=== PATIENT | male | born 1975 | race Caucasian/White ===

== ENCOUNTER 2017-06-27 14:56 | Emergency (ER) | payer OTHER ==
--- NOTE | 2017-06-27 15:23 | PDOC ---
Rapid Medical Evaluation Time Seen by Provider: 06/27/17 15:18 Medical Evaluation: 06/27/17 15:18 I have performed a brief in-person evaluation of this patient. The patient presents with a chief complaint of: abscess/ swelling and drainage to right AC.. used small needle to arm 3 days ago.. now arm red/ swollen with purulent drainage. Pertinent physical exam findings: Hot, red, swollen right arm- with open wound draining purulent drainage. I have ordered the following: wound culture , CBC, CMP, Blood Culture x 1 . The patient will proceed to the ED for further evaluation. 06/27/17 15:19 06/27/17 15:25
[2017-06-27 15:24] VITALS: BP 147/95; PULSE 86; TEMP 98.3; BMI 27.1
--- NOTE | 2017-06-27 18:30 | PDOC ---
History of Present Illness - General Chief Complaint: Abscess Boil Stated Complaint: BOIL Time Seen by Provider: 06/27/17 15:18 History Source: Patient Exam Limitations: No Limitations - History of Present Illness Initial Comments: 06/27/17 18:30 41M with no past medical history presents to the ED for purulent abcess on the right forearm for the past 5 days. Patient denies any starting injury. Pain and redness stated as a point that increased in sized every days. Patient admits to pricking the site with a needle to drain it. The site appears purulent. PAtient denies iv drug use and denies having taken any medication for it. Past History - Past Medical History Allergies/Adverse Reactions: Allergies Allergy/AdvReac Type Severity Reaction Status Date / Time No Known Allergies Allergy Verified 06/27/17 15:22 Home Medications: Ambulatory Orders Sulfamethoxazole/Trimethoprim [Bactrim Ds -] 1 tab PO BID #14 tablet 06/27/17 COPD: No Other medical history: denies - Suicide/Smoking/Psychosocial Hx Smoking History: Current every day smoker Number of Cigarettes Smoked Daily: 20 Information on smoking cessation initiated: No Review of Systems - Review of Systems Able to Perform ROS?: Yes Constitutional: No: Symptoms Reported HEENTM: No: Symptoms Reported Respiratory: No: Symptoms reported Cardiac (ROS): No: Symptoms Reported ABD/GI: No: Symptoms Reported : No: Symptoms Reported Musculoskeletal: No: Symptoms Reported Integumentary: Yes: See HPI All Other Systems: Reviewed and Negative *Physical Exam - Vital Signs Last Vital Signs Temp Pulse Resp BP Pulse Ox 98.3 F 86 18 147/95 99 06/27/17 15:22 06/27/17 15:22 06/27/17 15:22 06/27/17 15:22 06/27/17 15:22 - Physical Exam General Appearance: Yes: Nourished, Appropriately Dressed. No: Apparent Distress HEENT: positive: EOMI, NKEHCI Respiratory/Chest: positive: Lungs Clear, Normal Breath Sounds. negative: Chest Tender, Respiratory Distress Cardiovascular: positive: Regular Rhythm, Regular Rate, S1, S2 Gastrointestinal/Abdominal: positive: Normal Bowel Sounds Extremity: positive: Normal Capillary Refill, Normal Inspection, Normal Range of Motion Integumentary: positive: Normal Color, Dry, Warm, Other (5xcm are of induration with central purulence) Neurologic: positive: Fully Oriented, Alert, Normal Mood/Affect Procedures - Incision and Drainage I&D Site: Right: Arm Betadine cleansed: Yes Anesthesia: 1% Lidocaine Blade Size: 11 Iodinated Packin/2 in ED Treatment Course - LABORATORY CBC & Chemistry Diagram: 06/27/17 19:42 06/27/17 19:20 Medical Decision Making - Medical Decision Making 06/27/17 21:38 Patient given IV vancomycin prescription for Bactrim Come back tomorrow to remove packing Ultrasound shows no vessel involvement *DC/Admit/Observation/Transfer Diagnosis at time of Disposition: Abscess of arm, right - Discharge Dispostion Disposition: HOME Condition at time of disposition: Fair Admit: No - Prescriptions Prescriptions: Sulfamethoxazole/Trimethoprim [Bactrim Ds -] 1 tab PO BID #14 tablet - Referrals - Patient Instructions Printed Discharge Instructions: DI for Incision and Drainage of a Skin Abscess Additional Instructions: Come back in 24H to this Emergency department to get packing removed. Avoid getting packing wet in the meantime. Come back to the ER in the meantime for any new, concerning or worsening symptom. - Post Discharge Activity
[2017-06-27] MEDS ORDERED: VANCOMYCIN 1 GRAM (PRE-DOCKED) 1,000 MG/250 ML BAG IVPB ONE (18:42)
[2017-06-27] MEDS ORDERED: VANCOMYCIN 1,500 MG in DEXTROSE 5%-WATER - 500 ML IVPB ONE (19:05)
[2017-06-27 19:51] LABS: BASO % 0.8 % (0-2.0); EOS % 4.4 % (0-4.5); HEMATOCRIT 43.6 % (35.4-49); HEMOGLOBIN 14.5 GM/dL (11.7-16.9); LYMPH % 30.3 % (8-40); MCH 27.8 pg (25.7-33.7); MCHC 33.3 g/dl (32.0-35.9); MEAN CELL VOLUME 83.6 fl (80-96); MEAN PLT VOLUME 7.4 fl (7.5-11.1); MONO % 7.3 % (3.8-10.2); NEUT % 57.2 % (42.8-82.8); PLATELET COUNT 194 K/MM3 (134-434); RBC 5.21 M/mm3 (4.00-5.60); RDW 14.8 % (11.9-15.9); WHITE BLOOD COUNT 9.8 K/mm3 (4.0-10.0)
[2017-06-27] MEDS ORDERED: VANCOMYCIN 1,500 MG in SODIUM CHLORIDE 500 ML IVPB ONE (20:00)
[2017-06-27 20:51] LABS: ALBUMIN 3.9 g/dl (3.4-5.0); ALK PHOS 59 U/L (45-117); ANION GAP 6 (8-16); BILIRUBIN,TOTAL 0.5 mg/dL (0.2-1.0); BLOOD UREA NITROGEN 14 mg/dL (7-18); CALCIUM 8.5 mg/dL (8.5-10.1); CHLORIDE 104 mmol/L (98-107); CO2 30 mmol/L (21-32); CREATININE 0.6 mg/dL (0.7-1.3); GLUCOSE,RANDOM 84 mg/dL (74-106); POTASSIUM 4.4 mmol/L (3.5-5.1); SGOT/AST 13 U/L (15-37); SGPT/ALT 30 U/L (12-78); SODIUM 140 mmol/L (136-145); TOT PROT 7.2 g/dl (6.4-8.2)
--- NOTE | 2017-06-27 21:08 | PDOC ---
Attending Attestation - HPI HPI: 06/27/17 21:11 The patient is a 41-year-old male, with no significant past medical history, who presents to the ED for an abscess on the right forearm that the patient noted 5 days ago. The patient has noted an increase in pain and size over the past few days. He denies any recent injury to the area. The patient denies any IV drug usage. <Tanja Govea - Last Filed: 06/27/17 21:24> - Resident Resident Name: Kalpesh Montes De Oca - ED Attending Attestation I have performed the following: I have examined & evaluated the patient, The case was reviewed & discussed with the resident, I agree w/resident's findings & plan, Exceptions are as noted - Physicial Exam PE: 06/27/17 21:25 Patient is awake and alert, nontoxic-appearing, afebrile, nc, atr cta rrr rue: Approximately 5 cm area of induration immediately medial to the right antecubital fossa with a central area of fluctuance, draining spontaneously purulent material, with erythema extending proximally to the distal one third of the medial aspect of the arm; no proximal lymphadenopathy is appreciated; there is no evidence of lymphangitic spread; brachial pulse and radial pulses are +2; - Medical Decision Making 06/27/17 21:29 Patient is a 41-year-old male who presents to the ER with a right upper extremity abscess with surrounding cellulitis. Right upper extremity ultrasound shows a 3 x 3 x 0.7 cm fluid collection with debris likely representing an abscess cavity; no evidence of pseudoaneurysm or vessel involvement is noted. Patient received IV vancomycin, and under sterile conditions after prepping the area abscess cavity was incised and drained without a form packing inserted and a gauze dressing applied. Patient will be discharged with by mouth Bactrim with follow-up in 24 hours for reevaluation. <Devon Davis - Last Filed: 06/27/17 21:32> Attestations - Attestations 06/27/17 21:24 Documentation prepared by Tanja Govea, acting as medical appointment clerk for Devon Davis MD. <Tanja Govea - Last Filed: 06/27/17 21:24>
== END 2017-06-27 21:49 | disposition home or self-care (01) ==
LOC: JER 14:56
PROC: 3E03329 Introduction of Other Anti-infective into Peripheral Vein, Percutaneous Approach (ICD-10-PCS; principal; 2017-06-27)
PROC: 0J9G0ZZ Drainage of Right Lower Arm Subcutaneous Tissue and Fascia, Open Approach (ICD-10-PCS; 2017-06-27)
DX: L02.413 Cutaneous abscess of right upper limb (principal)
CPT/HCPCS: 10160; 36415; 76882; 80053; 85025; 87040; 87070; 87186; 87205; 96365; 96366; 99282-25

== ENCOUNTER 2017-06-28 17:07 | Emergency (ER) | payer OTHER ==
[2017-06-28 17:11] VITALS: BP 154/86; PULSE 89; TEMP 98.1; BMI 26.9
--- NOTE | 2017-06-28 18:08 | PDOC ---
History of Present Illness - General Chief Complaint: Revisit,Wound Recheck Stated Complaint: REMOVAL OF PACKING Time Seen by Provider: 06/28/17 17:28 History Source: Patient Exam Limitations: No Limitations - History of Present Illness Initial Comments: 06/28/17 18:03 CHIEF COMPLAINT: Here for packing change to right antecubital HISTORY OF PRESENT ILLNESS: Patient is a 41-year-old male denies any significant medical history was seen yesterday in the emergency department for abscess to right before meals I&D was performed patient was placed on Bactrim here for packing removal and dressing change. Patient denies any fever, reports that the erythema and induration to area has significantly decreased. Did start his antibiotics tolerating well. 06/28/17 18:03 Occurred: reports: yesterday Severity: reports: moderate Upper Extremity Pain Location: right: elbow Past History - Past Medical History Allergies/Adverse Reactions: Allergies Allergy/AdvReac Type Severity Reaction Status Date / Time No Known Allergies Allergy Verified 06/28/17 17:11 Home Medications: Ambulatory Orders Sulfamethoxazole/Trimethoprim [Bactrim Ds -] 1 tab PO BID #14 tablet 06/27/17 COPD: No - Suicide/Smoking/Psychosocial Hx Smoking History: Current every day smoker Number of Cigarettes Smoked Daily: 20 Information on smoking cessation initiated: No Review of Systems - Review of Systems Respiratory: No: Symptoms reported Cardiac (ROS): No: Symptoms Reported Musculoskeletal: Yes: Joint Pain Integumentary: Yes: Erythema, Other (area, there is a 2 cm opening that is draining well to right antecubital) Neurological: No: Paresthesia, Tingling, Tremors Hematologic/Lymphatic: No: Symptoms Reported All Other Systems: Reviewed and Negative *Physical Exam - Vital Signs Last Vital Signs Temp Pulse Resp BP Pulse Ox 98.1 F 89 18 154/86 99 06/28/17 17:08 06/28/17 17:08 06/28/17 17:08 06/28/17 17:08 06/28/17 17:08 - Physical Exam General Appearance: Yes: Appropriately Dressed. No: Apparent Distress Neck: negative: Tender lateral, Tender midline Respiratory/Chest: positive: Lungs Clear, Normal Breath Sounds. negative: Respiratory Distress, Accessory Muscle Use Cardiovascular: positive: Regular Rhythm, Regular Rate Lymphatic: negative: Adenopathy Musculoskeletal: negative: Decreased Range of Motion Extremity: positive: Swelling, Erythema, Inflammation Integumentary: positive: Erythema, Swelling. negative: Ecchymosis, Bruising Neurologic: positive: Alert, Normal Mood/Affect, Motor Strength 10/04 Medical Decision Making - Medical Decision Making 06/28/17 18:05 A/P: Here for packing removal to place packing was removed area is mildly erythematous with decreased induration responding well to I&D and antibiotics I have encourage patient to follow-up in wound care. Antibiotic therapy if any increased redness swelling or if wound does not appear to be healing well to return immediately to ER. *DC/Admit/Observation/Transfer Diagnosis at time of Disposition: Abscess packing removal - Discharge Dispostion Disposition: HOME Condition at time of disposition: Stable Admit: No - Referrals - Patient Instructions Printed Discharge Instructions: DI for Wound Infection Additional Instructions: PLease monitor area for any increased redness swelling or signs of infection, if any fever or increased signs of infection return immediately to ER Follow-up in wound care may make appointment at [phone] Take antibiotics as ordered make sure to keep area clean washed thoroughly with non-fragrance RECOMMENDED antibacterial. - Post Discharge Activity Forms/Work/School Notes: Back to Work
== END 2017-06-28 18:11 | disposition home or self-care (01) ==
LOC: JERFT 17:07
DX: Z48.01 Encounter for change or removal of surgical wound dressing (principal); L02.413 Cutaneous abscess of right upper limb
CPT/HCPCS: 99281-25

== ENCOUNTER 2017-07-01 16:17 | Emergency (ER) | payer OTHER ==
--- NOTE | 2017-07-01 16:35 | PDOC ---
Rapid Medical Evaluation Time Seen by Provider: 07/01/17 16:32 Medical Evaluation: Allergies Allergy/AdvReac Type Severity Reaction Status Date / Time No Known Allergies Allergy Verified 07/01/17 16:33 07/01/17 16:33 Pt with c/o: here for wound check for i& D done here 3 days ago, no fever, no complaints, + MRSA on cx Pt on exam: VSS, Pt ordered for: none Pt to proceed to the ED Discharge Disposition - Diagnosis Abscess of arm, right - Referrals - Patient Instructions - Post Discharge Activity
[2017-07-01 16:37] VITALS: BP 112/55; PULSE 80; TEMP 98.2; BMI 26.7
--- NOTE | 2017-07-01 17:33 | PDOC ---
Suture Removal/Wound Check HPI - History of Present Illness Chief Complaint: Wound Stated Complaint: ER REVIST Time Seen by Provider: 07/01/17 16:32 History Source: Yes: Patient Exam Limitations: Yes: No Limitations Treated at: [facility] Date of Last ED visit: 06/28/17 - Previous ED Treatment Type of procedure performed on last visit: Yes: I&D of Abscess Antibiotics Prescribed: Yes (Bactrim) - Onset of Previous Treatment Date of Occurence: 06/27/17 Past History - Past Medical History Allergies/Adverse Reactions: Allergies Allergy/AdvReac Type Severity Reaction Status Date / Time No Known Allergies Allergy Verified 07/01/17 16:33 Home Medications: Ambulatory Orders NK [No Known Home Medication] 07/01/17 COPD: No - Immunization History Immunization Up to Date: No - Suicide/Smoking/Psychosocial Hx Smoking History: Never smoked Number of Cigarettes Smoked Daily: 20 Information on smoking cessation initiated: No Hx Alcohol Use: No Drug/Substance Use Hx: No Substance Use Type: None Suture Removal/Wound Check PE - Physical Exam Laceration/Wound Check Symptoms: reports: None (<0.5cm circular open area over right medial epicondyle) Current Severity Level: None Location of Laceration/Wound: right: Arm (over medial epicondyle) *Review of Systems - Review of Systems Able to Perform ROS?: Yes Constitutional: No: Symptoms Reported HEENTM: No: Symptoms Reported Respiratory: No: Symptoms reported Cardiac (ROS): No: Symptoms Reported ABD/GI: No: Symptoms Reported : No: Symptoms Reported Musculoskeletal: No: Symptoms Reported Integumentary: Yes: Other Neurological: No: Symptoms reported Medical Decision Making - Medical Decision Making 07/01/17 17:37 A/P: Wound healing appropriately. Less than 0.5 cm opening noted over the right medial epicondyle. No packing in place. No erythema, discharge, drainage, pain noted from site. No eschar noted. Continue wound care Return to care in 7-10 days for reevaluation *DC/Admit/Observation/Transfer Diagnosis at time of Disposition: Abscess of arm, right - Discharge Dispostion Disposition: HOME Condition at time of disposition: Stable Admit: No - Referrals - Patient Instructions Additional Instructions: Continue with wound dressings. Return to her primary doctor or to the ER 7-10 days for reevaluation of wound. Return to the ER sooner than that if you experience any fevers, chills, redness , drainage, discharge, streaking up her arm, or any other concerns. Thank you very much for choosing to provide your emergent healthcare needs. - Post Discharge Activity
== END 2017-07-01 17:46 | disposition home or self-care (01) ==
LOC: JERFT 16:17
DX: Z09 Encounter for follow-up examination after completed treatment for conditions other than malignant neoplasm (principal); L02.413 Cutaneous abscess of right upper limb; B95.62 Methicillin resistant Staphylococcus aureus infection as the cause of diseases classified elsewhere
CPT/HCPCS: 99281-25